=== PATIENT | male | born 1950 | race Caucasian/White ===

== ENCOUNTER 2016-05-14 07:50 | Day surgery (SDC) | payer OTHER, MEDICAID ==
[~2016-05-14] VITALS: Ht 177.8 cm; Wt 90.2 kg
--- NOTE | ~2016-05-14 | OR ---
PATIENT'S NAME: MAIKEL HALEY [facility] AGE: 65 Y [address] ROOM: [place] [address] [place] [facility] [place]: 05/14/[place] OR/Procedure Report DISCHARGE DATE: 05/15/2016 FAMILY PHYSICIAN: PHYSICIAN, KATTY ATTENDING PHYSICIAN: Margareth Cuevas SURGEON: Margareth Cuevas MD AGRICULTURAL ENGINEERING TECHNICIAN: Pat Pierre CST. DATE OF PROCEDURE: 05/14/2016 PREOPERATIVE DIAGNOSIS: Left L5-S1 foraminal stenosis. POSTOPERATIVE DIAGNOSIS: Left L5-S1 foraminal stenosis. PROCEDURES PERFORMED: 1. Left L5-S1 hemilaminotomy, medial facetectomy, and foraminotomy for decompression of neural elements. 2. Left L5-S1 microdiskectomy. ANESTHESIA: General. ANESTHESIA PROVIDER: Alvaro Ryder MD. HISTORY: This patient is a 65-year-old gentleman who presented with left-side buttock pain radiating down to the left leg. Imaging studies showed a very stenotic right L5-S1 foramen. The stenosis was as a result of hypertrophic facet joints as well as a small herniated disk at the L5-S1 level. The patient did not respond to nonoperative treatment. Surgery was therefore recommended. The procedure, the above along with benefits and risks were discussed with the patient. With his consent, he was brought to the operating room for surgery. PROCEDURE IN DETAIL: In the operating room, the patient was placed in a supine position. Anesthesia was induced and he was intubated. He was then rolled to a prone position on a Ambrose table taking care to protect all pressure points. The incision line was marked out in the midline of his lower back corresponding to the L5-S1 level. The whole area was prepped and draped in a sterile fashion. Local anesthesia was infiltrated along the incision line. The #10 blade was used to open the incision and to deepen it to the fascial layer. The fascia was opened with a Bovie and the incision deepened to the tips of the spinous processes. Paraspinous muscles were dissected of the spinous process in laminae of L5 and S1. Intraoperative x-ray was used to confirm level. Microscope was brought in at this point under microscopic vision. PATIENT'S NAME: MAIKEL HALEY [facility] AGE: 65 Y [address] ROOM: [place] [address] [place] [facility] [place]: 05/14/2016 OR/Procedure Report DISCHARGE DATE: 05/15/2016 FAMILY PHYSICIAN: PHYSICIAN, NO ATTENDING PHYSICIAN: Margareth Cuevas Hemilaminotomy was performed along the adjacent edges of the left L5 and S1 lamina. The medial facet was also drilled down. The facet was very hypertrophic. The L5 nerve root was definitely compressed significantly. Working very carefully all the compressive elements around the L5 nerve roots were removed. Some of it was from hypertrophic facet, but there was also a small disc herniation occupying some of the foramen that was contributing to the compression. Working very carefully, the nerve root was decompressed. We also extended the laminotomy to the S1 level to make sure that the S1 nerve root was visualized and was not compressed. However, most of the compression was on the L5 nerve root. At the end of the decompression both nerve roots i.e., L5 and S1 on the left side could be seen going out into their respective foramina without any restriction. Bone wax was used to wax the edges thoroughly. Hemostasis was achieved using fibrillar. Some ropivacaine was placed in the epidural space to help with postoperative pain. The incision was then closed using appropriate suture materials. Nylon was used to close the skin. A sterile dressing was applied. The patient was then rolled back to a supine position. His anesthesia was reversed. He was extubated and taken back to the recovery room to complete his recovery. I was present during the entire procedure assisted by operating room nurses. There were no apparent intraoperative complications. Swabs, needles, and instruments were all accounted for at the end of the case. Estimated blood loss was less than 100 mL and there was no reason for blood transfusion. I expect the patient to benefit from this procedure. MD BOB OVIEDO/merle /[id number] d: 05/19/16 1444 t: 05/21/16 1203, OPERATIVE SUMMARY
--- NOTE | ~2016-05-14 | HP ---
PATIENT'S NAME: KAYLEIGH HALEY [facility] AGE: 65 Y [address] ROOM: [place] [address] [place] [facility] [place]: 05/14/2016 History & Physical DISCHARGE DATE: 05/15/2016 FAMILY PHYSICIAN: PHYSICIAN, NO ATTENDING PHYSICIAN: Margareth Cuevas DATE OF SERVICE: PATIENT IDENTIFICATION: Kayleigh Haley is a 65-year-old gentleman. PRESENTING COMPLAINT: Low back and left leg pain. HISTORY OF PRESENT ILLNESS: The patient presents with low back pain radiating down the left leg, going through the knee and all the way down to the ankle. Left leg pain is worse than the back pain and it began in the summer of 2011 and has steadily gotten worse. The pain started while he was getting radiation for prostate cancer, and the patient was concerned that he may have bony metastases, but this was not the case. The pain goes down to the calf and left foot. It was rated as moderately severe but variable. Standing and walking made it worse and sitting down made it better. The patient had already had cortisone shots at [place] which helped for a while. Eventually had a lumbar spine MRI which showed spinal stenosis. He was, therefore, referred [place] and treatment. REVIEW OF SYSTEMS: A 10-point review of systems was carried out. The only abnormal finding was the patient's complains of sexual dysfunction. PHYSICAL EXAMINATION: GENERAL: The patient is a healthy looking male who was alert and cooperative through the examination. VITAL SIGNS: Stable. NEUROLOGIC: Speech is intact. Cranial nerves, no deficits seen. Motor examination; the patient has normal strength in all the major groups of his upper and lower extremities. He does have increased reflexes in all his limbs, and he reports previous cervical spine injury which was not treated at that time. PSYCHIATRIC: The patient is not showing any signs of psychiatric symptoms or findings. SKIN: No skin rashes or skin masses. EXTREMITIES: No cyanosis or clubbing. PATIENT'S NAME: KAYLEIGH HALEY [facility] AGE: 65 Y [address] ROOM: [place] [address] [place] [facility] [place] DATE: 05/14/2016 History & Physical DISCHARGE DATE: 05/15/2016 FAMILY PHYSICIAN: PHYSICIAN, NO ATTENDING PHYSICIAN: Margareth Cuveas HEENT: Head; his head is atraumatic. Eyes and ears; no evidence of trauma. REVIEW OF IMAGING STUDIES: The patient has had lumbar MRI done. The MRI shows severe left L5-S1 foraminal stenosis with a small disk herniation that compresses the left S1 nerve root. This is likely the cause of the patient's symptoms. PAST MEDICAL HISTORY: Elevated blood pressure. CURRENT MEDICATIONS: 1. Atenolol. 2. Cyclobenzaprine. 3. Hydrochlorothiazide. 4. Todd. 5. Indomethacin. 6. Lisinopril. ALLERGIES: PLEASE SEE CHART. FAMILY HISTORY: There is no family history relevant to present problems. SOCIAL HISTORY: The patient is . He is a nonsmoker. IMPRESSION: A 65-year-old male with clinical and radiological findings consistent with lumbar foraminal stenosis. PLAN: The patient has been scheduled for surgery and he did have his surgery performed on 05/14/2016. This note is being dictated as the original note was deemed to have before surgery was done. MD SARAY OVIEDOO/merle PATIENT'S NAME: KAYLEIGH HALEY [facility] AGE: 65 Y [address] ROOM: [place] [address] [place] [facility] [place] DATE: 05/14/2016 History & Physical DISCHARGE DATE: 05/15/2016 FAMILY PHYSICIAN: KATTY DONIS ATTENDING PHYSICIAN: Margareth Cuevas /[id number] D: T: 903 HISTORY & PHYSICAL
--- NOTE | ~2016-05-14 | DS ---
PATIENT'S NAME: MAIKEL HALEY [facility] AGE: 65 Y [address] ROOM: [place] [address] [place] [facility] [place]: 05/14/2016 Discharge Summary DISCHARGE DATE: 05/15/2016 FAMILY PHYSICIAN: KATTY DONIS ATTENDING PHYSICIAN: Margareth Cuevas REASON FOR ADMISSION: The patient is a 65-year-old male admitted for an elective surgical procedure. HISTORY OF PRESENT ILLNESS: The patient presented with left-sided back pain radiating down to the left leg. Imaging studies showed left L5-S1 foraminal stenosis. TREATMENT RENDERED: The patient was taken to the operating room on the date of admission and underwent left L5-S1 foraminotomy and microdiskectomy. The patient's surgery was uncomplicated. His postoperative course was uneventful. By the next morning, his left leg pain had completely resolved. His incision was clean, dry, and intact. The patient was released home and arrangements have been made for him to be followed up in the Neurosurgery [facility]. FINAL DIAGNOSIS: Left L5-S1 foraminal stenosis with left S1 radiculopathy. MD BOB OVIEDO/merle /[id number] d: 05/20/16 0314 t: 05/21/16 1206, DISCHARGE SUMMARY
[~2016-05-14 07:50] MED LIST: ADVIL200 MG PO; DITROPAN5 MG PO; ELIGARD45 MG SUB-Q; FLEXERIL10 MG PO; INDOCIN25 MG PO; LISINOPRIL-HCT1 EACH PO; NEURONTIN300 MG PO; NORCO 5-325 TA1 EACH PO; PRILOSEC20 MG PO; TENORMIN100 MG PO; VITAMIN D1000 UNIT PO; ZOCOR80 MG PO; ZOLOFT100 MG PO
--- NOTE | 2016-05-14 17:15 | NUR ---
Significant Event: Received from pacu @ 0183. Dressing to back c/d/i. CSM WNL. Pneumatic stockings & teds on. Was incont in pacu. O2 down to 3L. Taking fluids without n/v. Family @ bedside. Using IS. [place] 2 tabs @ 6085. Follow up:
--- NOTE | 2016-05-15 03:49 | NUR ---
Significant Event: Alert and oriented X3. Vital signs stable. Weaned to 1L 02. Desats to 87% on RA. Pushing IS. Lungs clear and diminished. Neurochecks WNL. Rates pain 3-4/10. [place] given for pain. Has ambulated in hallway with SBA, gait belt and walker. IV fluids running to L) hand. Dressing to back is CDI. Wearing depends, states it is normal for him to dribble. Adequate urine output. Follow up:
--- NOTE | 2016-05-15 13:34 | NUR ---
Significant Event: Pt is a/o. Cooperative with cares. Amb to BR with walker, gaitbelt and SBA. PT worked with him, now is able to amb with cane. States he has a cane @ home. CSM WNL. Back dressing c/d/i. Minimal c/o pain. [place] @ 0915. Family @ bedside. Plans discharge this afternoon. SL patent L) hand. Follow up:
--- NOTE | 2016-05-15 17:42 | NUR ---
ASSUMED CARES FROM [facility] DIS[facility]ARE[facility]. NO CHANGE IN PREVIOUS ASSESSMENTS.
== END 2016-05-15 16:45 | disposition disaster alternative care site (69) ==
LOC: GSDC 07:50 → G3N 07:50 → GSDC 05-15 16:45
PROC: 0SB20ZZ Excision of Lumbar Vertebral Disc, Open Approach (ICD-10-PCS; principal; 2016-05-14)
PROC: 01NB0ZZ Release Lumbar Nerve, Open Approach (ICD-10-PCS; 2016-05-14)
DX: M48.07 Spinal stenosis, lumbosacral region (principal); M51.16 Intervertebral disc disorders with radiculopathy, lumbar region; K21.9 Gastro-esophageal reflux disease without esophagitis; I10 Essential (primary) hypertension; F17.200 Nicotine dependence, unspecified, uncomplicated; Z90.49 Acquired absence of other specified parts of digestive tract; Z98.890 Other specified postprocedural states
CPT/HCPCS: J0690; J1040; J1100; J1170; J1885; J2001; J2405; J2795; J3010; J7030; J7120

== ENCOUNTER → 2016-07-23 | Outpatient (CLI) | payer OTHER, MEDICARE, MEDICAID | END | disposition disaster alternative care site (69) | LOC: GRAD 10:43 | DX: Z09 Encounter for follow-up examination after completed treatment for conditions other than malignant neoplasm (principal); M54.40 Lumbago with sciatica, unspecified side; M47.896 Other spondylosis, lumbar region; M48.06 Spinal stenosis, lumbar region; Z98.890 Other specified postprocedural states | CPT/HCPCS: A9577 ==

== ENCOUNTER 2016-08-18 07:10 | Observation (INO) | payer MEDICARE, MEDICAID, OTHER ==
[~2016-08-18] VITALS: Ht 177.8 cm; Wt 87.6 kg
--- NOTE | ~2016-08-18 | HP ---
PATIENT'S NAME: KAYLEIGH HALEY [facility] AGE: 65 Y [address] ROOM: [place] [address] LOCATION: [facility] ADMIT DATE: 08/18/2016 History & Physical DISCHARGE DATE: 08/20/2016 FAMILY PHYSICIAN: Altagracia Yoo MD ATTENDING PHYSICIAN: Margareth Styles DATE OF SERVICE: PATIENT IDENTIFICATION: Kayleigh Haley is a 65-year-old gentleman. PRESENTING COMPLAINTS: Lower back and left leg pain. HISTORY OF PRESENT ILLNESS: The patient complained of back pain going down the left buttock to the outside of the left leg. The patient had a left L5-S1 foraminotomy on May 14, 2016 but still continued to complain of left leg pain. I did a followup MRI scan which showed spinal stenosis at the L4-5 level and which could be the cause of the patient's ongoing pain. I therefore offered him laminectomy at the L4-5 level and he was agreeable to having the surgery done. The surgery was scheduled for August 18, 2016. REVIEW OF SYSTEMS: A 10-point review of systems was carried out. The only abnormal finding was as described in the history of present illness. PAST MEDICAL HISTORY: Significant for prostate cancer, low back pain, high blood pressure, cholecystectomy. CURRENT MEDICATIONS: Please see chart. ALLERGIES: PLEASE SEE CHART. SOCIAL HISTORY: The patient is a smoker and he is . PHYSICAL EXAMINATION: GENERAL: The patient is a healthy-looking gentleman, who was alert and cooperative through the examination. VITAL SIGNS: Stable. NEUROLOGICAL: His speech is intact. Cranial nerves, no deficits seen. Motor PATIENT'S NAME: KAYLEIGH HALEY [facility] AGE: 65 Y [address] ROOM: [place] [address] LOCATION: [facility] ADMIT DATE: 08/18/2016 History & Physical DISCHARGE DATE: 08/20/2016 FAMILY PHYSICIAN: Altagracia Yoo MD ATTENDING PHYSICIAN: Margareth Styles examination, the patient has normal strength in all the extremities. CARDIOVASCULAR SYSTEM: Heart sounds stable. RESPIRATORY SYSTEM: The patient is not short of breath at bedside. HEENT: His head is atraumatic. Eyes and ears, no evidence of trauma. REVIEW OF IMAGING STUDIES: The patient has had a repeat MRI scan done. The MRI shows lumbar spinal stenosis at L4-L5. ASSESSMENT: A 65-year-old gentleman with ongoing low back and left leg pain, postop left L5-S1 foraminotomy done earlier in the year. MEDICAL DECISION MAKING: Given the ongoing symptoms and the presence of stenosis at the L4-5 level, I have recommended lumbar laminectomy and foraminotomy for the patient. The procedure has been scheduled for August 18, 2016. MARGARETH STYLES MD CNO/modl /[id number] CC: Siddhartha Davenport MD D: 346 T: 820 HISTORY & PHYSICAL
--- NOTE | ~2016-08-18 | PUL ---
PATIENT'S NAME: MAIKEL HALEY [facility] AGE: 65 Y [address] ROOM: [address] [address] LOCATION: [facility] ADMIT DATE: 08/18/2016 Pulmonary DISCHARGE DATE: 08/20/2016 FAMILY PHYSICIAN: Altagracia Yoo MD ATTENDING PHYSICIAN: Margareth Cuevas NAME OF PROCEDURE: Overnight Pulse Oximetry DATE OF PROCEDURE: August 18 to August 19, 2016 REASON FOR EXAM: Nocturnal hypoxemia RESULTS: The test was started on room air, but supplemental oxygen was added approximately 5 hours into the study. The recording time was 8 hours, 51 minutes, and 32 seconds, with a total valid sampling time of 8 hours, 42 minutes, and 52 seconds. The highest pulse was 82, lowest pulse was 56, with a mean pulse of 68. The highest SpO2 was 98%, lowest SpO2 was 78%, with a mean SpO2 of 88.1%. The patient spent 4 hours, 54 minutes, and 32 seconds with SpO2 less than 89%, representing 56.3% of the total sleep time. The desaturation event index was significantly elevated at 37.9. PHYSICIAN INTERPRETATION: The patient has evidence of severe nocturnal hypoxia and would qualify for supplemental oxygen as per Medicare criteria. However, because of the severity of his nocturnal hypoxia with an elevated desaturation event index a sleep study is suggested at this time. MD ABIGAIL VARGAS/rj /[id number] dtt: 08/26/16 1058 , ART MACDONALD dtd: 08/21/16 1029
--- NOTE | ~2016-08-18 | OR ---
PATIENT'S NAME: MAIKEL HALEY [facility] AGE: 65 Y [address] ROOM: [address] [address] LOCATION: [facility] ADMIT DATE: 08/18/2016 OR/Procedure Report DISCHARGE DATE: 08/20/2016 FAMILY PHYSICIAN: Altagracia Yoo MD ATTENDING PHYSICIAN: Margareth Cuevas SURGEON: Margareth Cuevas MD COMPUTER SYSTEMS HARDWARE ANALYST: DATE OF PROCEDURE: 08/18/2016 PREOPERATIVE DIAGNOSIS: Lumbar spinal stenosis. POSTOPERATIVE DIAGNOSIS: Lumbar spinal stenosis. PROCEDURE PERFORMED: Bilateral laminectomy with decompression of neural elements and foraminotomy at L4-5. COMPUTER SYSTEMS HARDWARE ANALYST SURGEON: Pat Pierre CST. ANESTHESIA: General. ANESTHESIA PROVIDER: Gavin Saldivar CRNA. HISTORY: The patient is a 65-year-old gentleman who presented with left leg pain. The patient had prior left L5-S1 diskectomy, but was still having pain. Repeat imaging showed spinal stenosis of the L4-5 level. Surgery was recommended to relieve the stenosis and hopefully, improve the patient's left leg pain. He did have bilateral foraminal stenosis at L4-5. The above procedure, benefits, and risks were discussed with the patient and with his consent, he was brought to the operating room for surgery. PROCEDURE IN DETAIL: In the operating room, the patient was placed in a supine position. Anesthesia was induced and he was intubated. The patient was then rolled to a prone position on a Ambrose table taking care to protect all pressure points. The incision line was marked out in the midline of the lower back and the whole area was prepped and draped in a sterile fashion. Local anesthesia was infiltrated. The #10 blade was used to open the incision and deepened into the fascia. Self-retaining retractor was placed. The fascia was opened and the tips of the spinous processes of L4 and L5 were identified. The paraspinous muscles were dissected off the spinous processes and the laminae of the vertebrae. Intraoperative x-ray was obtained to confirm our level. Laminectomy was carried out bilaterally at L4 and L5. The drill was used to drill down the laminae on both sides at both vertebral levels and the rongeur was used to remove the spinous processes and laminae commencing the central PATIENT'S NAME: MAIKEL HALEY [facility] AGE: 65 Y [address] ROOM: [id number] [place], [place] [address] LOCATION: [facility] ADMIT DATE: 08/18/2016 OR/Procedure Report DISCHARGE DATE: 08/20/2016 FAMILY PHYSICIAN: Altagracia Yoo MD ATTENDING PHYSICIAN: Margareth Cuevas part of the decompression. The decompression was then continued with a Kerrison rongeur. The ligamentum flavum was quite thick and the facets were quite hypertrophic contributing to the stenosis. Decompression continued until the spinal canal was completely decompressed and bilateral foraminotomies were carried out. At the end of the procedure, the nerve roots could be seen going out into their respective foramina at the L4-5 level. The left side was quite stenotic and part of the stenosis was from a disc bulge that was compressing the nerve roots from the ventral surface. After the decompression, however, the nerve root was seen going out into its foramen on the left side without any more compression. At the completion of the laminectomy, the edges of the laminectomy were waxed with bone wax and Fibrillar was used to control epidural bleeding. The patient had expressed some concern about his past history of prostate cancer and whether there was cancer in his bone. For this reason, the laminae as well as the epidural tissue that was found at the time of surgery was sent off for pathology analysis to make sure there was no evidence of metastatic tumor to the spine or epidural space. Visually, the epidural tissue did seem a little abnormal, but it was not clear if this was from tumor or from prior surgery. At the end of the procedure, the incision was closed with appropriate suture materials. A sterile dressing was applied. The patient's anesthesia was reversed. He was extubated and taken to the recovery room to complete his recovery. I was present during this procedure and performed every aspect of it, assisted at some stages by operating room nurses. There were no apparent intraoperative complications. Swabs, needles, and instruments were all accounted for at the end of the case. Estimated blood loss was less than 500 mL and there was no reason for blood transfusion. The patient's pathology report has since come back and it just showed benign bone showing hematopoiesis and some fibrous tissue with chronic inflammation. There was no evidence of tumor seen from the biopsy material taken at the surgery. MD SARAY OVIEDOO/modl /[id number] CC: Siddhartha Davenport MD d: 08/24/16 1724 t: 08/31/16 0810, OPERATIVE SUMMARY
== END 2016-08-20 11:00 | disposition disaster alternative care site (69) ==
LOC: GSDC 07:10 → G3N 07:10 → EDSTATUS 11:00 → G3N 15:53 → GSDC 15:54 → G3N 08-20 11:00
PROVIDERS: ADMIT Neurological Surgery
PROC: 01NB0ZZ Release Lumbar Nerve, Open Approach (ICD-10-PCS; principal; 2016-08-18)
DX: M48.06 Spinal stenosis, lumbar region (principal); M51.16 Intervertebral disc disorders with radiculopathy, lumbar region; I10 Essential (primary) hypertension; E78.00 Pure hypercholesterolemia, unspecified; Z85.46 Personal history of malignant neoplasm of prostate; Z90.79 Acquired absence of other genital organ(s); Z90.49 Acquired absence of other specified parts of digestive tract; Z79.899 Other long term (current) drug therapy; Z98.890 Other specified postprocedural states
CPT/HCPCS: G0378; G8978; G8979; G8980; G8981; G8982; G8983; J0690; J1170; J2001; J2270; J3010; J7030; J7120